=== PATIENT | female | born 1995 | race African-American/Black ===

== ENCOUNTER 2017-05-02 05:55 | Inpatient (IN) ==
[2017-05-02] MEDS ORDERED: ACETAMINOPHEN 325 MG TABLET PO PRN ×2 (06:13→10:27)
[2017-05-02] MEDS ORDERED: MEPERIDINE 50 MG/1 ML VIAL IV PRN (06:13)
[2017-05-02] MEDS ORDERED: ONDANSETRON 4 MG/2 ML VIAL IV PRN ×2 (06:13→10:27)
[2017-05-02] MEDS ORDERED: BUTORPHANOL 2 MG/ML VIAL IV PRN (06:13)
[2017-05-02] MEDS ORDERED: AMPICILLIN INJ 2,000 MG in SODIUM CHLORIDE 0.9% 100 ML IV ONE (06:14)
[2017-05-02 06:35] LABS: Basophils % 0.3 % (0.0-0.8); Eosinophils % 0.2 % (0.00-10.9); Hematocrit 38.8 VOL% (35.7-47.0); Immature Granulocytes % 0.7 %; Lymphocytes # 2.2 10*3/uL (1.4-4.0); Lymphocytes % 14.9 % (21.3-54.2); Mean Corpuscular HGB Conc 33.5 GM/DL (32-36); Mean Corpuscular Hemoglobin 28 PG (27-34); Mean Corpuscular Volume 82.6 FL (87-102); Monocytes # 0.7 10*3/uL (0.11-0.8); Monocytes % 4.7 % (1.7-12.7); Neutrophils # 11.9 10*3/uL (1.4-7.4); Neutrophils % 79.2 % (38.7-73.9); Platelet Count 293 T/CUMM (130-400); Red Cell Distribution Width 13.4 % (9.3-17.3); White Blood Count 15.1 T/CUMM (4-12)
[2017-05-02 06:43] LABS: Apearance,Urine CLEAR (Clear); Bacteria,Urine Occasional /HPF (Few); Bilirubin,Urine Negative (Negative); Blood, Urine Large mg/dL (Negative); Glucose,Urine (UA) Negative (Negative); Ketones,Urine Negative (Negative); Mucus,Urine Occasional /LPF (Occasional); Nitrite,Urine Negative (Negative); Protein,Urine Negative; RBC,Urine 107 /HPF (0-4); Squamous Epithelial Cell,Urine Occasional /HPF (0-10); Urine Color Yellow (Yellow); Urine Specific Gravity 1.016 (1.001-1.035); Urine Urobilinogen < 2.0 EU/DL (0.2-1.0); WBC,Urine 4 /HPF (0-6)
[2017-05-02] MEDS: LACTATED RINGERS 1,000 ML IV SCH ×2 (06:46→08:52)
[2017-05-02] MEDS ORDERED: OXYTOCIN/LR 20 UNIT/1,000 ML BAG IV SCH (07:30)
[2017-05-02] MEDS ORDERED: ePHEDrine 50 MG/ML AMP IV PRN (07:57)
[2017-05-02] MEDS ORDERED: diphenhydrAMINE 50 MG/1 ML VIAL IV PRN (07:57)
[2017-05-02] MEDS ORDERED: fentaNYL 2 MCG/ROPIV 0.2% EPID 150 ML EPIDURAL PRN (07:57)
[2017-05-02] MEDS ORDERED: PROMETHAZINE 25 MG/1 ML VIAL IM PRN (07:57)
[2017-05-02] MEDS ORDERED: CITRIC ACID/SODIUM CITRATE 30 ML UDCUP PO PRN (07:58)
[2017-05-02] MEDS ORDERED: FAMOTIDINE 20 MG/2 ML VIAL IV PRN (07:58)
--- NOTE | 2017-05-02 09:02 | OB/GYN History & Physical ---
History of Present Illness Chief complaint: C/O contractions History of present illness: Ms. Nazario is a 22 year old female primigravida with an EDC of 05/09/2017 based on LMP at 38.6 weeks gestation today. She complained of contractions since 4: 00 this morning. Her records are current, available, and up-to-date. Records are available and review. During the course of her she had a vitamin D deficiency in which she was placed on vitamin D supplements, she was a negative blood type in which she did receive RhoGam 1 02/26/2017, she had bacterial vaginosis and Trichomonas treated with Flagyl p.o., she had cervical change which she was given Celestone IM placed on Procardia and bed rest. She does have anemia and she is placed on iron twice a day. She is group beta strep positive. Labs: She is B-, antibody screen negative, rubella immune, VDRL nonreactive, HBsAg negative, urine culture negative, HIV negative, GC negative, chlamydia negative, sickle cell screen negative, vitamin D deficiency 11.4, 1 hour GTT 100 , group beta strep positive, H&H on 03/29/2017 11.4 and 33.4 A: IUP @ 38.6 wks, spontaneous labor, Category I FHR, GBS positive P: Admit patient, obtain admission labs. Offer analgesics. Reposition for comfort. Questions answered to desired level of satisfaction. Dr. Huber aware of patient and patient's status. Home Medications Medication Instructions Recorded Confirmed Type 68/Iron/Folic No1/Dha 1 each PO DAILY 12/04/16 05/02/17 History [Virt-Pn Plus Softgel] Allergies Allergy/AdvReac Type Severity Reaction Status Date / Time No Known Allergies Allergy Unverified 12/04/16 01:45 12 point system: reviewed and no additional remarkable complaints except as stated Medical,Surgical,& Family Hx - Medical History Medical History: noncontributory - Surgical History Surgical History: noncontributory - Family History Family History: noncontributory Family History: Reports;: Family Cancer (mgf) Denies;: Family Anesthesia Reaction, Family Diabetes, Family Heart Disease, Family Hematology, Family Hypertension, Family Psychiatric Problems, Family Stroke, Additional Family History - Social History Smoking Status: Never smoker Frequency of Alcohol Use: None Type of Drug Use: None Marital Status: Single Functional capacity: independent ambulation 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 Vitals: Vital Signs Temp Pulse Resp BP Pulse Ox 05/02/17 06:15 97.9 F 97 H 20 126/60 100 General appearance: no acute distress, over weight - Antepartum / Post Antepartum Exam Cervix - Dilatation: 8 cm Effacement: 90% Station: -1 Rupture: AROM with amniohook- clear fluid Presentation: vtx Heart Rate: 115-120s with accels and occ variable decels, non repetitive [place]: Every 2-3 min/ 30-50 sec/ mod Breast: bilateral: normal Abdomen obstetrics: Present: bowel sounds normal Vagina: Present: normal moisture Uterus exam: Present: enlarged (gravid, uterine tonus soft) Anus/Rectum: Present: normal perianal skin - Head Head exam: Present: normal inspection - Eye Eye exam: Present: EOMI - ENT ENT exam: Present: normal exam - Neck Neck exam: Present: normal inspection - Respiratory Respiratory exam: Present: clear to auscultation bilaterally - Breast Breasts: as per HPI - Cardiovascular Cardiovascular exam: Present: regular rate and rhythm - GI/Abdominal GI/Abdominal exam: Present: normal bowel sounds - Extremities Exam Extremities exam: Present: normal inspection, normal capillary refill, full ROM - Back Exam Back exam: Present: normal inspection - Neurological Exam Neurological exam: Present: alert, oriented X3, normal gait - Psychiatric Psychiatric exam: Present: normal affect, normal mood - Skin Skin exam: Present: normal color, warm, dry Assessment and Plan (1) Group beta Strep positive Status: Acute Current Visit: Yes (2) Spontaneous onset of labor Status: Acute Current Visit: Yes Results - Labs CBC & BMP: 05/02/17 06:24 Labs: Laboratory Tests 05/02/17 05/02/17 05/02/17 06:10 06:24 06:24 WBC 15.1 H RBC 4.70 Hgb 13.0 Hct 38.8 MCV 82.6 L MCH 28 MCHC 33.5 RDW 13.4 Plt Count 293 MPV 9.0 L Neut % (Auto) 79.2 H Lymph % (Auto) 14.9 L [place] % (Auto) 4.7 Eos % (Auto) 0.2 Baso % (Auto) 0.3 Neut # (Auto) 11.9 H Lymph # (Auto) 2.2 [place] # (Auto) 0.7 Eos # (Auto) 0.0 Baso # (Auto) 0.0 Immature Gran % 0.7 Nucleated RBC % 0.0 Immature Gran # 0.10 Nucleated RBCs # 0.00 Immature Plt Fraction 0.0 Urine Color Yellow Urine Appearance Clear Urine pH 6.0 Ur Specific [place] 1.016 Urine Protein Negative Urine Glucose (UA) Negative Urine Ketones Negative Urine Blood Large Urine Nitrate Negative Urine Bilirubin Negative Urine Urobilinogen < 2.0 H Urine Leukocytes Trace Urine RBC 107 Urine WBC 4 Ur Squamous Epith Cells Occasional Urine Bacteria Occasional Urine Mucus Occasional Ur Culture Indicated? Not indicated Blood Type B NEGATIVE Antibody Screen Negative
[2017-05-02] MEDS ORDERED: BUTORPHANOL 1 MG/ML VIAL ONE (09:35)
[2017-05-02] MEDS ORDERED: miSOPROStol 200 MCG TABLET ONE (09:35)
[2017-05-02] MEDS ORDERED: LIDOCAINE 1% 50 ML VIAL ONE (09:35)
--- NOTE | 2017-05-02 10:24 | Operative Note ---
Date of procedure: 05/02/17 Pre-op diagnosis: IUP @ 38.6 wks, Spontaneous Labor, GBS positive Post-op diagnosis: other () Procedure: Patient received in dorsal lithotomy position, draped, and prepped. At 0 953, head delivered in MICHAEL position under an epidural anesthetic. Anterior then posterior shoulders were delivered easily without difficulty. delivered in usual fashion and secured. Mouth and nose bulb suctioned. Cord doubly clamped and cut per female significant other after 1 minute Apgars were obtained in the cord stopped pulsating. placed on mother's chest. At 0956, spontaneous delivery of placenta via Tomasz position, with 3 vessel cord noted, no cord insertion, with moderate calcifications. Hemostasis maintained with fundal massage and Pitocin 20 units in 1000 cc of lactated Ringer's. Perineum inspected with bilateral labial lacerations infiltrated with lidocaine 1% plain and repaired with 3-0 and 2-0 chromic suture, first-degree vaginal laceration infiltrated with lidocaine 1% plain and repaired 2-0 chromic suture. Femur with Apgars 9 and 9 with weight pending. Mother and baby are stable. Mother desires to breast-feed. Anesthesia: local (Lidocaine plain 10 cc), epidural Surgeon / Physician: Iesha Schaeffer Estimated blood loss: minimal (200) Specimens: other (Placenta to pathology secondary to group beta strep positive) Condition: stable Disposition: floor Results - Labs CBC & BMP: 05/02/17 06:24 Discharge Plan - Discharge Medications No Action 68/Iron/Folic No1/Dha [Virt-Pn Plus Softgel] 1 each PO DAILY - Follow Up or Referral - Forms/Instructions
[2017-05-02] MEDS ORDERED: OXYTOCIN/LR 20 UNIT/1,000 ML BAG IV ONE (10:27)
[2017-05-02] MEDS ORDERED: WITCH HAZEL PADS 100/JAR TOP PRN (10:27)
[2017-05-02] MEDS ORDERED: RHO(D) IMMUNE GLOBULIN 300 MCG SYRINGE IM ONE (10:27)
[2017-05-02] MEDS ORDERED: MEASLES/MUMPS/RUBELLA VACCINE 0.5 ML VIAL SUBCUT ONE (10:27)
[2017-05-02] MEDS ORDERED: BISACODYL 10 MG SUPP RECTAL PRN (10:27)
[2017-05-02] MEDS ORDERED: HYDROCORTISONE 2.5% RECTAL CREAM 30 GM TUBE TOP PRN (10:27)
[2017-05-02] MEDS ORDERED: LANOLIN 50% CREAM 0.3 OZ TUBE TOP PRN (10:27)
[2017-05-02] MEDS ORDERED: oxyCODONE/ACETAMINOPHEN 5-325 MG TABLET PO PRN ×2 (10:27)
[2017-05-02] MEDS ORDERED: DIPH/TET/ACEL PERT BOOSTER VACCINE 0.5 ML VIAL IM ONE (10:27)
[2017-05-02] MEDS ORDERED: BENZOCAINE 20%/MENTHOL 0.5% SPRAY 56 GM CAN TOP PRN (10:27)
--- NOTE | 2017-05-02 16:50 | Anesthesia Post-Op ---
Anesthesia Post OP - Post Ansesthetic Evaluation Patient seen in post op: Yes Resp: within normal limits CV: within normal limits Mental: within normal limits Temp: within normal limits [id number]: within normal limits Nausea and Vomiting: within normal limits Pain: within normal limits
[2017-05-02] MEDS: DOCUSATE SODIUM 100 MG CAPSULE PO SCH (20:16)
[2017-05-02] MEDS: IBUPROFEN 800 MG TABLET PO PRN (20:16)
[2017-05-03 06:10] LABS: Basophils # 0.1 10*3/uL (0.0-0.2); Basophils % 0.4 % (0.0-0.8); Eosinophils # 0.1 10*3/uL (0.0-0.87); Eosinophils % 0.6 % (0.00-10.9); Hematocrit 36.7 VOL% (35.7-47.0); Hemoglobin 12.5 GM/DL (12.0-16.0); Immature Granulocytes % 0.7 %; Lymphocytes # 2.8 10*3/uL (1.4-4.0); Lymphocytes % 20.2 % (21.3-54.2); Mean Corpuscular HGB Conc 34.1 GM/DL (32-36); Mean Corpuscular Hemoglobin 28 PG (27-34); Mean Corpuscular Volume 82.5 FL (87-102); Mean Platelet Volume 9.2 FL (9.6-12.0); Monocytes # 0.6 10*3/uL (0.11-0.8); Monocytes % 4.6 % (1.7-12.7); Neutrophils # 10.2 10*3/uL (1.4-7.4); Neutrophils % 73.5 % (38.7-73.9); Platelet Count 291 T/CUMM (130-400); Red Blood Count 4.45 MC/CUMM (3.8-5.5); Red Cell Distribution Width 13.5 % (9.3-17.3); White Blood Count 13.9 T/CUMM (4-12)
[2017-05-03] MEDS: FERROUS SULFATE 325 MG TABLET PO SCH (08:29)
[2017-05-03] MEDS: MULTIVITAMIN (PRENATAL) TABLET PO SCH (08:29)
[2017-05-03] MEDS: DOCUSATE SODIUM 100 MG CAPSULE PO SCH ×2 (08:29→20:45)
--- NOTE | 2017-05-03 13:29 | OB/GYN Progress Note ---
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 Desires control but unsure of the type of control at this time. Denies any problems. States voiding freely without difficulty. A: day 1, breast and bottlefeeding, stable P: Continue routine care. Possible discharge home tomorrow if stable. 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: Vital Signs Temp Pulse Resp BP Pulse Ox 05/03/17 12:00 97.6 F 77 16 123/84 99 05/03/17 07:45 97.1 F L 92 H 18 112/67 99 05/03/17 03:55 96.5 F L 74 20 97/58 97 05/03/17 03:00 20 05/03/17 02:00 18 05/03/17 00:00 96.6 F L 84 18 108/76 98 05/02/17 23:00 18 05/02/17 22:10 20 05/02/17 19:40 98.1 F 71 20 115/65 99 05/02/17 16:00 97.0 F L 84 18 111/63 96 05/02/17 14:45 97.5 F L 107 H 18 121/65 97 05/02/17 13:45 66 18 123/62 97 General appearance: no acute distress - Antepartum / Post Post Exam Breast: bilateral: normal Abdomen obstetrics: Present: bowel sounds normal Vulva: bilateral: normal Vagina: Present: normal moisture (Scant rubra noted on perineal pain) Uterus exam: Present: enlarged (Firm, midline, 2 fingerbreadths below the umbilicus) Adnexa: bilateral: normal Anus/Rectum: Present: normal perianal skin - Head Head exam: Present: normal inspection - Eye Eye exam: Present: EOMI - ENT ENT exam: Present: normal exam, normal external ear exam - Neck Neck exam: Present: normal inspection - Respiratory Respiratory exam: Present: clear to auscultation bilaterally - Cardiovascular Cardiovascular exam: Present: regular rate and rhythm - GI/Abdominal GI/Abdominal exam: Present: normal bowel sounds - Extremities Exam Extremities exam: Present: normal inspection, normal capillary refill, full ROM - Back Exam Back exam: Present: normal inspection - Neurological Exam Neurological exam: Present: alert, oriented X3, normal gait - Psychiatric Psychiatric exam: Present: normal affect, normal mood - Skin Skin exam: Present: normal color, warm, dry Results - Labs CBC & BMP: 05/03/17 05:44 Labs: Laboratory Tests 05/02/17 05/02/17 05/02/17 06:10 06:24 06:24 WBC 15.1 H RBC 4.70 Hgb 13.0 Hct 38.8 MCV 82.6 L MCH 28 MCHC 33.5 RDW 13.4 Plt Count 293 MPV 9.0 L Neut % (Auto) 79.2 H Lymph % (Auto) 14.9 L [place] % (Auto) 4.7 Eos % (Auto) 0.2 Baso % (Auto) 0.3 Neut # (Auto) 11.9 H Lymph # (Auto) 2.2 [place] # (Auto) 0.7 Eos # (Auto) 0.0 Baso # (Auto) 0.0 Immature Gran % 0.7 Nucleated RBC % 0.0 Immature Gran # 0.10 Nucleated RBCs # 0.00 Immature Plt Fraction 0.0 Urine Color Yellow Urine Appearance Clear Urine pH 6.0 Ur Specific [place] 1.016 Urine Protein Negative Urine Glucose (UA) Negative Urine Ketones Negative Urine Blood Large Urine Nitrate Negative Urine Bilirubin Negative Urine Urobilinogen < 2.0 H Urine Leukocytes Trace Urine RBC 107 Urine WBC 4 Ur Squamous Epith Cells Occasional Urine Bacteria Occasional Urine Mucus Occasional Ur Culture Indicated? Not indicated Blood Type B NEGATIVE Antibody Screen Negative Screen 05/03/17 05/03/17 05:44 05:44 WBC 13.9 H RBC 4.45 Hgb 12.5 Hct 36.7 MCV 82.5 L MCH 28 MCHC 34.1 RDW 13.5 Plt Count 291 MPV 9.2 L Neut % (Auto) 73.5 Lymph % (Auto) 20.2 L [place] % (Auto) 4.6 Eos % (Auto) 0.6 Baso % (Auto) 0.4 Neut # (Auto) 10.2 H Lymph # (Auto) 2.8 [place] # (Auto) 0.6 Eos # (Auto) 0.1 Baso # (Auto) 0.1 Immature Gran % 0.7 Nucleated RBC % 0.0 Immature Gran # 0.10 Nucleated RBCs # 0.00 Immature Plt Fraction 0.0 Urine Color Urine Appearance Urine pH Ur Specific [place] Urine Protein Urine Glucose (UA) Urine Ketones Urine Blood Urine Nitrate Urine Bilirubin Urine Urobilinogen Urine Leukocytes Urine RBC Urine WBC Ur Squamous Epith Cells Urine Bacteria Urine Mucus Ur Culture Indicated? Blood Type B NEGATIVE Antibody Screen Negative Screen Negative
--- NOTE | 2017-05-03 13:30 | Discharge Summary ---
Hospital Course - Hospital Course Hospital Course: Ms. Nazario is a 22-year-old now 1 para 1 that presented at 38.6 weeks gestation with spontaneous contractions. Labor progressed under an epidural anesthetic for patient to deliver a female weighing 2523 g under an epidural anesthetic with Apgars 9 and 9, experiencing a first-degree vaginal laceration that was repaired with pneumatic a 1% plain and 2-0 chromic as well as a bilateral labial lacerations that were repaired with 2-0 and 3-0 chromic also using lidocaine 1% plain. She has been stable during the course of her hospitalization. She is breast and bottlefeeding. She desires control but she is unsure of the type of control that she would like at this time. She will be discharged home and will follow-up at the clinic in 2 weeks. Diagnosis - Discharge Diagnosis (1) Group beta Strep positive Status: Resolved (2) Spontaneous onset of labor Status: Resolved (3) Normal spontaneous vaginal delivery Status: Resolved Specialty Discharge - Follow Up or Referrals Follow up with: Iesha Schaeffer CFNP [Primary Care Provider] - 05/17/17 2:20 pm Discharge Plan - Discharge Data Disposition: Disch To Home/Self Care Condition at Discharge: Stable Discharge Diet: advance to your usual diet Activity: resume usual activities as tolerated Hygiene: may shower Weight Bearing at Discharge: full weight bearing Driving: not for (2 weeks) Contact your physician if you experience:: fever over 101, Difficulty voiding, Redness or swelling, Nausea/Vomiting, Shortness of breath, Bleeding, pain uncontrolled by pain medications - Discharge Medications New Ibuprofen Tab [Motrin Tab] 800 mg PO Q8H PRN #90 tablet PRN Reason: Pain Moderate (4-7) Ferrous Sulfate Tab [Feosol Original Tab] 325 mg PO DAILY #30 tablet No Action 68/Iron/Folic No1/Dha [Virt-Pn Plus Softgel] 1 each PO DAILY - Follow Up or Referral Follow Up: Iesha Schaeffer CFNP [Primary Care Provider] - 05/17/17 2:20 pm - Forms/Instructions Instructions: Iron Supplements (By mouth), Ibuprofen (By mouth), Perineal Care (DC), Vaginal Delivery (DC), Bleeding (DC) Exam - Constitutional Vitals: Period Temp Pulse Resp BP Sys/[place] Pulse Ox Last 24 Hr 96.5 F-98.1 F 66-107 16-20 97-123/58-84 96-99 Vital Signs Temp Pulse Resp BP Pulse Ox 97.5 F L 117 H 18 120/75 97 05/04/17 08:00 05/04/17 08:00 05/04/17 08:00 05/04/17 08:00 05/04/17 08:00 Laboratory Tests 05/02/17 05/02/17 05/02/17 06:10 06:24 06:24 WBC 15.1 H RBC 4.70 Hgb 13.0 Hct 38.8 MCV 82.6 L MCH 28 MCHC 33.5 RDW 13.4 Plt Count 293 MPV 9.0 L Neut % (Auto) 79.2 H Lymph % (Auto) 14.9 L [place] % (Auto) 4.7 Eos % (Auto) 0.2 Baso % (Auto) 0.3 Neut # (Auto) 11.9 H Lymph # (Auto) 2.2 [place] # (Auto) 0.7 Eos # (Auto) 0.0 Baso # (Auto) 0.0 Immature Gran % 0.7 Nucleated RBC % 0.0 Immature Gran # 0.10 Nucleated RBCs # 0.00 Immature Plt Fraction 0.0 Urine Color Yellow Urine Appearance Clear Urine pH 6.0 Ur Specific [place] 1.016 Urine Protein Negative Urine Glucose (UA) Negative Urine Ketones Negative Urine Blood Large Urine Nitrate Negative Urine Bilirubin Negative Urine Urobilinogen < 2.0 H Urine Leukocytes Trace Urine RBC 107 Urine WBC 4 Ur Squamous Epith Cells Occasional Urine Bacteria Occasional Urine Mucus Occasional Ur Culture Indicated? Not indicated Blood Type B NEGATIVE Antibody Screen Negative Screen 05/03/17 05/03/17 05:44 05:44 WBC 13.9 H RBC 4.45 Hgb 12.5 Hct 36.7 MCV 82.5 L MCH 28 MCHC 34.1 RDW 13.5 Plt Count 291 MPV 9.2 L Neut % (Auto) 73.5 Lymph % (Auto) 20.2 L [place] % (Auto) 4.6 Eos % (Auto) 0.6 Baso % (Auto) 0.4 Neut # (Auto) 10.2 H Lymph # (Auto) 2.8 [place] # (Auto) 0.6 Eos # (Auto) 0.1 Baso # (Auto) 0.1 Immature Gran % 0.7 Nucleated RBC % 0.0 Immature Gran # 0.10 Nucleated RBCs # 0.00 Immature Plt Fraction 0.0 Urine Color Urine Appearance Urine pH Ur Specific [place] Urine Protein Urine Glucose (UA) Urine Ketones Urine Blood Urine Nitrate Urine Bilirubin Urine Urobilinogen Urine Leukocytes Urine RBC Urine WBC Ur Squamous Epith Cells Urine Bacteria Urine Mucus Ur Culture Indicated? Blood Type B NEGATIVE Antibody Screen Negative Screen Negative General appearance: no acute distress - Head Head exam: Present: normal inspection - Eye Eye exam: Present: EOMI Pupils: Present: normal accommodation - ENT ENT exam: Present: normal exam, normal external ear exam - Neck Neck exam: Present: normal inspection - Respiratory Respiratory exam: Present: clear to auscultation bilaterally - Cardiovascular Cardiovascular exam: Present: regular rate and rhythm - GI/Abdominal GI/Abdominal exam: Present: normal bowel sounds (Uterus firm, midline, 3 fingers below umbilicus. Scant rubra noted on perineal pad. Perineum intact healing well no edema noted) - Extremities Exam Extremities exam: Present: normal inspection, normal capillary refill, full ROM - Back Exam Back exam: Present: normal inspection - Neurological Exam Neurological exam: Present: alert, oriented X3, normal gait - Psychiatric Psychiatric exam: Present: normal affect, normal mood - Skin Skin exam: Present: normal color, warm, dry Discharge Results Procedures and tests throughout hospitalization: Laboratory Tests 05/02/17 05/02/17 05/02/17 06:10 06:24 06:24 WBC 15.1 H RBC 4.70 Hgb 13.0 Hct 38.8 MCV 82.6 L MCH 28 MCHC 33.5 RDW 13.4 Plt Count 293 MPV 9.0 L Neut % (Auto) 79.2 H Lymph % (Auto) 14.9 L [place] % (Auto) 4.7 Eos % (Auto) 0.2 Baso % (Auto) 0.3 Neut # (Auto) 11.9 H Lymph # (Auto) 2.2 [place] # (Auto) 0.7 Eos # (Auto) 0.0 Baso # (Auto) 0.0 Immature Gran % 0.7 Nucleated RBC % 0.0 Immature Gran # 0.10 Nucleated RBCs # 0.00 Immature Plt Fraction 0.0 Urine Color Yellow Urine Appearance Clear Urine pH 6.0 Ur Specific [place] 1.016 Urine Protein Negative Urine Glucose (UA) Negative Urine Ketones Negative Urine Blood Large Urine Nitrate Negative Urine Bilirubin Negative Urine Urobilinogen < 2.0 H Urine Leukocytes Trace Urine RBC 107 Urine WBC 4 Ur Squamous Epith Cells Occasional Urine Bacteria Occasional Urine Mucus Occasional Ur Culture Indicated? Not indicated Blood Type B NEGATIVE Antibody Screen Negative Screen 05/03/17 05/03/17 05:44 05:44 WBC 13.9 H RBC 4.45 Hgb 12.5 Hct 36.7 MCV 82.5 L MCH 28 MCHC 34.1 RDW 13.5 Plt Count 291 MPV 9.2 L Neut % (Auto) 73.5 Lymph % (Auto) 20.2 L [place] % (Auto) 4.6 Eos % (Auto) 0.6 Baso % (Auto) 0.4 Neut # (Auto) 10.2 H Lymph # (Auto) 2.8 [place] # (Auto) 0.6 Eos # (Auto) 0.1 Baso # (Auto) 0.1 Immature Gran % 0.7 Nucleated RBC % 0.0 Immature Gran # 0.10 Nucleated RBCs # 0.00 Immature Plt Fraction 0.0 Urine Color Urine Appearance Urine pH Ur Specific [place] Urine Protein Urine Glucose (UA) Urine Ketones Urine Blood Urine Nitrate Urine Bilirubin Urine Urobilinogen Urine Leukocytes Urine RBC Urine WBC Ur Squamous Epith Cells Urine Bacteria Urine Mucus Ur Culture Indicated? Blood Type B NEGATIVE Antibody Screen Negative Screen Negative Labs on day of discharge: Labs from last 24 hours 05/03/17 05/03/17 05:44 05:44 WBC 13.9 H RBC 4.45 Hgb 12.5 Hct 36.7 MCV 82.5 L MCH 28 MCHC 34.1 RDW 13.5 Plt Count 291 MPV 9.2 L Neut % (Auto) 73.5 Lymph % (Auto) 20.2 L [place] % (Auto) 4.6 Eos % (Auto) 0.6 Baso % (Auto) 0.4 Neut # (Auto) 10.2 H Lymph # (Auto) 2.8 [place] # (Auto) 0.6 Eos # (Auto) 0.1 Baso # (Auto) 0.1 Immature Gran % 0.7 Nucleated RBC % 0.0 Immature Gran # 0.10 Nucleated RBCs # 0.00 Immature Plt Fraction 0.0 Blood Type B NEGATIVE Antibody Screen Negative Screen Negative DS: Provider Date of admission: 05/02/17 06:13 Primary care physician: SHELTON Bautista Attending physician on admission: Akil Huber DO Consults: 05/02/17 06:13 Consult to Anesthesiology [CONS] Routine Consulting Provider: Reason for Anesthesiology: Epidural Consult Comment: Epidural for pain managment 05/02/17 10:28 Consult to Agency Operator [CONS] Routine Consult Agency Operator: Breast Feeding Discharging clinician: SHELTON Bautista
[2017-05-03] MEDS ORDERED: RHO(D) IMMUNE GLOBULIN 300 MCG SYRINGE IM ONE (14:01)
[2017-05-03] MEDS: IBUPROFEN 800 MG TABLET PO PRN (16:26)
[2017-05-04] MEDS: MULTIVITAMIN (PRENATAL) TABLET PO SCH (08:38)
[2017-05-04] MEDS: DOCUSATE SODIUM 100 MG CAPSULE PO SCH (08:39)
[2017-05-04] MEDS: FERROUS SULFATE 325 MG TABLET PO SCH (08:39)
--- NOTE | 2017-05-04 11:16 | Pathology Report from [facility] ---
[facility] ACCESSION # : [id number] PATIENT NAME : Blayne Hayes ORDERING DR : IVANIA EWING DO CLINICAL HX: IUP @ 39 wks, active labor, +group beta strep POST-OP DX: Same SPECIMEN INFO: Placenta GROSS DESCRIPTION: Received fresh labeled with the patients name and consists of a 408 gram placenta that measures 17.2 x 15.1 cm x up to 2.5 cm. membranes are tam, translucent with slimy texture. The umbilical cord is eccentrically inserted, contains three vessels and is 37.5 cm. The surface is dark blue-vogt with scattered areas of subchorionic fibrin present. There are cystic areas present measuring from 0.8 cm up to 2.0 cm. The maternal surface is hemorrhagic with intact cotyledons with a large of fibrin present measuring up to 8.0 cm. No gross abnormalities on sectioning. Sections submitted: A membranes and cord and cystic areas, B and maternal surfaces. DIAGNOSIS FOR BLAYNE HAYES: PLACENTA, 39 WEEKS GESTATIONAL AGE, VAGINAL DELIVERY: Mature placenta, 408 gms trimmed weight. Placental infarct. Subchorionic fibrin. COLLECTED DATE: 05/03/2017 [facility] REPORT DATE: 05/04/2017 ELECTRONICALLY SIGNED BY: Lala Loera M.D. 05/04/2017 - 10:23:37 [facility]ENTERZeke
[2017-05-04] MEDS ORDERED: DIPH/TET/ACEL PERT BOOSTER VACCINE 0.5 ML VIAL IM ONE (11:31)
[2017-05-04 11:45] VITALS: BP 122/72
== END 2017-05-04 14:50 | disposition home or self-care (01) | DRG 560 ==
LOC: N.LDOUT 05:55 → N.LD 05:56 → N.OB 13:08
PROVIDERS: ADMIT Obstetrics & Gynecology; ATTEND Obstetrics & Gynecology

== ENCOUNTER 2019-08-29 12:24 | Inpatient (IN) ==
[2019-08-29] MEDS ORDERED: MEPERIDINE 25 MG/1 ML VIAL IV PRN (13:30)
[2019-08-29] MEDS ORDERED: LACTATED RINGERS 1,000 ML IV SCH ×2 (13:30→17:30)
[2019-08-29] MEDS ORDERED: OXYTOCIN/LR 20 UNIT/1,000 ML BAG IV SCH (13:30)
[2019-08-29] MEDS ORDERED: BUTORPHANOL 2 MG/ML VIAL IV PRN (13:30)
[2019-08-29] MEDS ORDERED: ONDANSETRON 4 MG/2 ML VIAL IV PRN (13:30)
[2019-08-29] MEDS ORDERED: AMPICILLIN INJ 2,000 MG in SODIUM CHLORIDE 0.9% 100 ML IV ONE (13:36)
[2019-08-29 14:17] LABS: Basophils % 0.2 % (0.0-0.8); Eosinophils # 0.1 10*3/uL (0.0-0.87); Eosinophils % 0.5 % (0.00-10.9); Hematocrit 33.9 VOL% (35.7-47.0); Hemoglobin 11.5 GM/DL (12.0-16.0); Immature Granulocytes % 0.4 %; Immature Granulocytes Absolute 0.04 #; Mean Corpuscular HGB Conc 33.9 GM/DL (32-36); Mean Corpuscular Volume 84.1 FL (87-102); Mean Platelet Volume 10.4 FL (9.6-12.0); Neutrophils % 70.9 % (38.7-73.9); Platelet Count 298 T/CUMM (130-400); Red Blood Count 4.03 MC/CUMM (3.8-5.5); White Blood Count 9.3 T/CUMM (4-12)
[2019-08-29] MEDS ORDERED: ePHEDrine 50 MG/ML AMP IV PRN ×2 (17:03)
[2019-08-29] MEDS ORDERED: FAMOTIDINE 20 MG/2 ML VIAL IV ONE (17:03)
[2019-08-29] MEDS ORDERED: ONDANSETRON 4 MG/2 ML VIAL IV ONE (17:03)
[2019-08-29] MEDS ORDERED: PROMETHAZINE 25 MG/1 ML VIAL IM ONE (17:03)
[2019-08-29] MEDS ORDERED: hydrOXYzine HCL 25 MG/1 ML VIAL IM PRN (17:03)
[2019-08-29] MEDS ORDERED: NALOXONE 0.4 MG/ML VIAL IV PRN (17:03)
[2019-08-29] MEDS ORDERED: LACTATED RINGERS 250 ML IV PRN (17:03)
[2019-08-29] MEDS ORDERED: LACTATED RINGERS 1,000 ML IV ONE (17:03)
[2019-08-29] MEDS ORDERED: diphenhydrAMINE 50 MG/1 ML VIAL IV PRN ×2 (17:03)
[2019-08-29] MEDS ORDERED: CITRIC ACID/SODIUM CITRATE 30 ML UDCUP PO ONE (17:10)
[2019-08-29] MEDS ORDERED: fentaNYL 2 MCG/ROPIV 0.2% EPID 100 ML EPIDURAL SCH (17:30)
[2019-08-29] MEDS ORDERED: AMPICILLIN INJ 1,000 MG in SODIUM CHLORIDE 0.9% 100 ML IV SCH (19:00)
[2019-08-29] MEDS ORDERED: miSOPROStoL 200 MCG TABLET ONE (19:35)
[2019-08-29] MEDS ORDERED: LIDOCAINE 1% 50 ML VIAL ONE (19:35)
[2019-08-29] MEDS ORDERED: METHYLERGONOVINE 0.2 MG/1 ML AMP ONE (19:36)
[2019-08-29] MEDS ORDERED: TRANEXAMIC ACID 1,000 MG/10 ML VIAL ONE (19:36)
[2019-08-29] MEDS ORDERED: SODIUM CHLORIDE 0.9% 0 ML IV ONE (19:36)
[2019-08-29 19:38] LABS: Apearance,Urine CLEAR (Clear); Bacteria,Urine Occasional /HPF (Few); Bilirubin,Urine Negative (Negative); Blood, Urine Negative (Negative); Glucose,Urine (UA) Negative (Negative); Ketones,Urine 80 mg/dL (Negative); Mucus,Urine Occasional /LPF (Occasional); Nitrite,Urine Negative (Negative); Protein,Urine 30 MG/DL; RBC,Urine 3 /HPF (0-4); Squamous Epithelial Cell,Urine Occasional /HPF (0-10); Urine Color Yellow (Yellow); WBC,Urine <1 /HPF (0-6)
[2019-08-29] MEDS ORDERED: MEASLES/MUMPS/RUBELLA VACCINE 0.5 ML VIAL SUBCUT ONE (20:06)
[2019-08-29] MEDS ORDERED: BISACODYL 10 MG SUPP RECTAL PRN (20:06)
[2019-08-29] MEDS ORDERED: DIPH/TET/ACEL PERT BOOSTER VACCINE 0.5 ML VIAL IM ONE (20:06)
[2019-08-29] MEDS ORDERED: WITCH HAZEL PADS 100/JAR TOP PRN (20:06)
[2019-08-29] MEDS ORDERED: BENZOCAINE 20%/MENTHOL 0.5% SPRAY 56 GM CAN TOP PRN (20:06)
[2019-08-29] MEDS ORDERED: LANOLIN 50% CREAM 0.3 OZ TUBE TOP PRN (20:06)
[2019-08-29] MEDS ORDERED: HYDROCORTISONE 2.5% RECTAL CREAM 30 GM TUBE TOP PRN (20:06)
[2019-08-29] MEDS ORDERED: ACETAMINOPHEN 325 MG TABLET PO PRN (20:06)
[2019-08-29] MEDS ORDERED: oxyCODONE/ACETAMINOPHEN 5-325 MG TABLET PO PRN ×2 (20:06)
[2019-08-29] MEDS ORDERED: OXYTOCIN/LR 20 UNIT/1,000 ML BAG IV ONE (20:06)
[2019-08-29] MEDS ORDERED: IBUPROFEN 800 MG TABLET PO PRN (20:06)
[2019-08-29] MEDS ORDERED: RHO(D) IMMUNE GLOBULIN 300 MCG SYRINGE IM ONE (20:06)
[2019-08-29] MEDS ORDERED: FERROUS SULFATE 325 MG TABLET PO SCH (21:00)
[2019-08-30] MEDS: DOCUSATE SODIUM 100 MG CAPSULE PO SCH ×3 (00:10→21:14)
[2019-08-30 05:42] LABS: Basophils % 0.2 % (0.0-0.8); Eosinophils # 0.1 10*3/uL (0.0-0.87); Eosinophils % 0.6 % (0.00-10.9); Hematocrit 31.8 VOL% (35.7-47.0); Hemoglobin 10.8 GM/DL (12.0-16.0); Immature Granulocytes % 0.5 %; Immature Granulocytes Absolute 0.05 #; Lymphocytes # 2.1 10*3/uL (1.4-4.0); Lymphocytes % 19.9 % (21.3-54.2); Mean Corpuscular Volume 84.1 FL (87-102); Mean Platelet Volume 10.2 FL (9.6-12.0); Monocytes % 10.5 % (1.7-12.7); Neutrophils % 68.3 % (38.7-73.9); Platelet Count 243 T/CUMM (130-400); Red Blood Count 3.78 MC/CUMM (3.8-5.5); Red Cell Distribution Width 12.8 % (9.3-17.3); White Blood Count 10.4 T/CUMM (4-12)
[2019-08-30] MEDS: MULTIVITAMIN (PRENATAL) TABLET PO SCH (08:39)
[2019-08-30] MEDS ORDERED: RHO(D) IMMUNE GLOBULIN 300 MCG SYRINGE IM ONE (12:49)
[2019-08-30] MEDS: IBUPROFEN 800 MG TABLET PO PRN (14:49)
[2019-08-31 07:35] VITALS: BP 127/73
[2019-08-31] MEDS: DOCUSATE SODIUM 100 MG CAPSULE PO SCH (09:34)
[2019-08-31] MEDS: MULTIVITAMIN (PRENATAL) TABLET PO SCH (09:34)
[2019-08-31] MEDS: IBUPROFEN 800 MG TABLET PO PRN (09:35)
== END 2019-08-30 12:00 | disposition home or self-care (01) | DRG 560 ==
LOC: N.LDOUT 12:24 → N.LD 12:26 → N.OB 23:42
PROVIDERS: ADMIT Obstetrics & Gynecology; ATTEND Obstetrics & Gynecology